=== PATIENT | female | born 1945 | race African-American/Black ===

== ENCOUNTER 2016-06-23 20:12 | Inpatient (IN) | payer OTHER ==
[~2016-06-23] VITALS: Ht 165.1 cm; Wt 99.6 kg
[2016-06-23] MEDS ORDERED: HALOPERIDOL LACTATE 5 MG/ML AMP ONE (20:16)
[2016-06-23] MEDS ORDERED: LORazepam 2 MG/ML VIAL ONE (20:22)
[2016-06-23] MEDS ORDERED: HALOPERIDOL LACTATE 5 MG/ML AMP IM ONE ×2 (20:30)
[2016-06-23] MEDS ORDERED: LORazepam 2 MG/ML VIAL IV PUSH ONE (20:30)
[2016-06-23 20:33] VITALS: BP 158/74; PULSE 98; RESP 16; TEMP 98.3; O2SAT 100
[2016-06-23 20:49] LABS: AUTOMATED NEUTROPHIL # 8.9 TH/MM3 (1.8-7.7); BASOPHIL % 0.3 % (0.0-2.0); HEMATOCRIT 30.1 % (35.0-46.0); HEMO FLAGS AUTO DIFF; LYMPH % 10.8 % (9.0-44.0); LYMPHOCYTE # 1.2 TH/MM3 (1.0-4.8); MEAN CELL VOLUME 82.2 FL (80.0-100.0); MEAN CORPUSCULAR HEMOGLOBIN 26.4 PG (27.0-34.0); MEAN CORPUSCULAR HGB CONC 32.1 % (32.0-36.0); MONO % 7.1 % (0.0-8.0); NEUT % 81.8 % (16.0-70.0); PLATELET COUNT 192 TH/MM3 (150-450); RED BLOOD COUNT 3.67 MIL/MM3 (4.00-5.30); RED CELL DISTRIBUTION WIDTH 23.1 % (11.6-17.2); WHITE BLOOD COUNT 10.9 TH/MM3 (4.0-11.0)
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
[2016-06-23 21:27] LABS: KERATOCYTES OCC (NORMAL); PLATELET ESTIMATE SMEAR NORMAL (NORMAL); SCAN/DIFF AUTO DIFF CONFIRMED
[2016-06-23 21:28] LABS: PLATELET MORPHOLOGY ENLARGED (NORMAL)
[2016-06-23 21:46] LABS: ALKALINE PHOSPHATASE 82 U/L (45-117); ALT (GPT) 30 U/L (10-53); ANION GAP 14 MEQ/L (5-15); AST (GOT) 54 U/L (15-37); BLOOD UREA NITROGEN 20 MG/DL (7-18); CHLORIDE 110 MEQ/L (98-107); GLOMERULAR FILTRATION RATE 25 ML/MIN (>89); POTASSIUM 4.1 MEQ/L (3.5-5.1); SODIUM (NA) 145 MEQ/L (136-145); TOTAL BILIRUBIN ADULT 1.1 MG/DL (0.2-1.0)
[2016-06-23 23:03] LABS: BLOOD, URINE SMALL (NEG); GLUCOSE,URINE NEG (NEG); HYALINE CAST, URINE 4 /lpf (RARE); KETONE, URINE 10 mg/dL (NEG); MUCUS URINE FEW /lpf (OCC); NITRITE,URINE NEG (NEG); PH, URINE 5.5 (5.0-8.5); SQUAMOUS EPITHELIAL CELL URINE <1 /hpf (0-5); URINE COLOR YELLOW (YELLW/STRAW)
[2016-06-23 23:05] LABS: COMMENT (UR) CULT NOT INDICATED; CULTURE IF INDICATED CULT NOT INDICATED
[2016-06-23 23:06] LABS: AMPHETAMINE, URINE NEG (NEG); BARBITURATES, URINE NEG (NEG); COCAINE, URINE NEG (NEG)
[2016-06-24 07:15] VITALS: BP 155/78; PULSE 51; RESP 18; TEMP 98.3; O2SAT 98
--- NOTE | 2016-06-24 13:19 | RADRPT ---
EXAM DATE/TIME: 06/24/2016 12:58 [facility] COMPARISON: CT BRAIN W/O CONTRAST, August 27, 2015, 15:10. INDICATIONS : Altered mental status; confusion. RADIATION DOSE: 36.43 CTDIvol (mGy) MEDICAL HISTORY : Hypertension. SURGICAL HISTORY : None. ENCOUNTER: Initial ACUITY: 1 day PAIN SCALE: 0/10 LOCATION: cranial TECHNIQUE: Multiple contiguous axial images were obtained of the head. Using automated exposure control and adj ustment of the mA and/or kV according to patient size, radiation dose was kept as low as reasonably a chievable to obtain optimal diagnostic quality images. FINDINGS: CEREBRUM: There is mild cerebral atrophy. Ventricles are normal in size. Bilateral basal ganglia calcification is present. There is a stable area of low density in the right basal ganglia likely representing an o ld lacune. No evidence of midline shift, mass lesion, hemorrhage or acute infarction. No extra-axia l fluid collections are seen. POSTERIOR FOSSA: The cerebellum and brainstem demonstrate no acute finding. The 4th ventricle is midline. The cerebe llopontine angle is unremarkable. EXTRACRANIAL: Visualized sinuses are clear. SKULL: The calvaria is intact. No evidence of skull fracture. CONCLUSION: 1. Stable noncontrast head CT. No acute intracranial abnormality is identified. 2. Stable low-density in the right basal ganglia likely representing an old lacune. Van Waldron MD on June 24, 2016 at 13:14 Board Certified Radiologist. This report was verified electronically.
[2016-06-24 13:30] VITALS: BP 190/94; PULSE 50; RESP 18; O2SAT 100
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
[2016-06-24 17:06] VITALS: BP 181/96; PULSE 74; RESP 18; TEMP 96.6; O2SAT 99
[2016-06-24] MEDS ORDERED: ALUMINUM/MAGNESIUM/SIMETH 30 ML CUP PO PRN (18:00)
[2016-06-24] MEDS ORDERED: TEMAZEPAM 15 MG CAP PO PRN (18:00)
[2016-06-24] MEDS ORDERED: LORazepam 1 MG TAB PO PRN (18:00)
[2016-06-24] MEDS ORDERED: LORazepam 2 MG/ML VIAL IM PRN (18:00)
[2016-06-24] MEDS ORDERED: ACETAMINOPHEN 325 MG TAB PO PRN (18:00)
[2016-06-24] MEDS ORDERED: MAGNESIUM HYDROXIDE SUSP 30 ML CUP PO PRN (18:00)
[2016-06-24 18:10] VITALS: BP 154/77; PULSE 72; RESP 18; TEMP 96.9; O2SAT 97
[2016-06-25 05:16] VITALS: BP 176/74; PULSE 76; RESP 14; TEMP 98.4; O2SAT 100
[2016-06-25 07:41] LABS: AUTOMATED NEUTROPHIL # 3.4 TH/MM3 (1.8-7.7); BASOPHIL % 0.5 % (0.0-2.0); EOSINOPHIL # 0.1 TH/MM3 (0-0.4); EOSINOPHIL % 1.5 % (0.0-4.0); LYMPH % 22.5 % (9.0-44.0); LYMPHOCYTE # 1.1 TH/MM3 (1.0-4.8); MEAN CELL VOLUME 81.6 FL (80.0-100.0); MEAN CORPUSCULAR HEMOGLOBIN 26.2 PG (27.0-34.0); MEAN CORPUSCULAR HGB CONC 32.1 % (32.0-36.0); MONO % 9.8 % (0.0-8.0); NEUT % 65.7 % (16.0-70.0); PLATELET COUNT 172 TH/MM3 (150-450); RED BLOOD COUNT 3.79 MIL/MM3 (4.00-5.30); RED CELL DISTRIBUTION WIDTH 23.4 % (11.6-17.2); WHITE BLOOD COUNT 5.1 TH/MM3 (4.0-11.0)
[2016-06-25 07:43] LABS: HEMO FLAGS AUTO DIFF
[2016-06-25 08:11] LABS: ALKALINE PHOSPHATASE 66 U/L (45-117); ALT (GPT) 44 U/L (10-53); ANION GAP 8 MEQ/L (5-15); AST (GOT) 114 U/L (15-37); BICARBONATE 27.3 MEQ/L (21.0-32.0); BLOOD UREA NITROGEN 25 MG/DL (7-18); CHLORIDE 111 MEQ/L (98-107); FREE T4 1.25 NG/DL (0.76-1.46); GLOMERULAR FILTRATION RATE 48 ML/MIN (>89); HDL CHOLESTEROL 91.3 MG/DL (40.0-60.0); LDL CHOLESTEROL 13 MG/DL (0-99); POTASSIUM 3.9 MEQ/L (3.5-5.1); SODIUM (NA) 146 MEQ/L (136-145); TOTAL BILIRUBIN ADULT 0.8 MG/DL (0.2-1.0); URIC ACID 8.5 MG/DL (2.6-6.0)
[2016-06-25 08:39] LABS: SCAN/DIFF AUTO DIFF CONFIRMED
[2016-06-25 08:40] LABS: KERATOCYTES OCC (NORMAL); OVALOCYTES 1+ (NORMAL); PLATELET ESTIMATE SMEAR NORMAL (NORMAL); PLATELET MORPHOLOGY ENLARGED (NORMAL)
[2016-06-25 13:05] LABS: ANA SCREEN POS (NEG)
[2016-06-25 13:15] LABS: HEMOGLOBIN A1a 1.1 %; HEMOGLOBIN A1b 0.7 %; HEMOGLOBIN Ao 86.9 %; HEMOGLOBIN F 0.6 %; HEMOGLOBIN LA1C 1.9 %; HEMOGLOBIN P3 3.3 %
--- NOTE | 2016-06-25 13:15 | PD.CONS ---
HPI Service [facility] Hospitalists Consult Requested By Dr. Juliette Sharma Reason for Consult Medical Management Primary Care Physician Dr. Vlad Moreland Diagnoses: History of Present Illness Mrs. Humphreys is a 71 y/o female with HTN and hx of recurrent colon cancer. She was admitted to [facility] under Laughlin Act for acting erratically, screaming, wandering in and out of traffic. Pt was admitted to psychiatry unit for further management. Pts blood pressure was noted to be elevated since admission. She takes Lisinopril 20mg po daily as an outpt and its not clear if she is compliant with her medications or not. We have resumed her Lisinopril 20mg daily as well as Clonidine PRN. During a previous admission pt was on Lisinopril 20mg po BID and Procardia XL 60mg po daily for BP control. Pts HR is stable. Otherwise no specific complaints. Review of Systems ROS Limitations: Altered Mental Status Past Family Social History Past Medical History HTN Hx of recurrent colon cancer s/p right hemicolectomy with primary anastomosis on 08/02/[address] Marks. Pathology showed +lymph nodes but pt never followed up with Oncology for chemotherapy. Pt had a reoccurrence in 03/2016 and underwent laparoscopic assisted partial colectomy with ileocecal anastomosis in 03/2016 Septic arthritis in finger joint on right hand in 2014 DVT in LUE in 2014 Past Surgical History Right hemicolectomy in 07/2014 Laparoscopic assisted partial colectomy with ileocecal anastomosis in 03/2016 Exploration of right hand middle finger PIP joint on 08/08/14 Cataract surgery Reported Medications Lisinopril 20mg PO DAILY Allergies: Coded Allergies: No Known Allergies (Unverified , 08/21/15) Family History Noncontributory Social History No reported alcohol, tobacco or illicit drug use Physical Exam Vital Signs Vital Signs Date Time Temp Pulse Resp B/P Pulse Ox O2 Delivery O2 Flow Rate FiO2 06/25/16 05:16 98.4 76 14 176/74 100 06/24/16 18:10 96.9 72 18 154/77 97 06/24/16 17:06 96.6 74 18 181/96 99 06/24/16 13:30 50 18 190/94 100 Room Air Physical Exam GENERAL: This is a well-nourished, well-developed patient, in no apparent distress. HEENT: Atraumatic. Normocephalic. No temporal or scalp tenderness. No scleral icterus. Airway patent. NECK: Trachea midline, supple, nontender. CARDIO: Regular RESP: CTA bilaterally. No wheezes, rales, or rhonchi. ABD: +BS, soft, non-tender, nondistended. EXT: Extremities without clubbing, cyanosis, or edema. NEURO: Awake and alert. Motor and sensory grossly within normal limits. Normal speech. Laboratory Laboratory Tests Test 06/25/16 06:45 White Blood Count 5.1 Red Blood Count 3.79 Hemoglobin 9.9 Hematocrit 31.0 Mean Corpuscular Volume 81.6 Mean Corpuscular Hemoglobin 26.2 Mean Corpuscular Hemoglobin 32.1 Concent Red Cell Distribution Width 23.4 Platelet Count 172 Mean Platelet Volume 10.9 Neutrophils (%) (Auto) 65.7 Lymphocytes (%) (Auto) 22.5 Monocytes (%) (Auto) 9.8 Eosinophils (%) (Auto) 1.5 Basophils (%) (Auto) 0.5 Neutrophils # (Auto) 3.4 Lymphocytes # (Auto) 1.1 Monocytes # (Auto) 0.5 Eosinophils # (Auto) 0.1 Basophils # (Auto) 0.0 CBC Comment AUTO DIFF Differential Comment AUTO DIFF CONFIRMED Platelet Estimate NORMAL Platelet Morphology Comment ENLARGED Ovalocytes 1+ Keratocytes OCC Erythrocyte Sedimentation Rate 31 Sodium Level 146 Potassium Level 3.9 Chloride Level 111 Carbon Dioxide Level 27.3 Anion Gap 8 Blood Urea Nitrogen 25 Creatinine 1.32 Estimat Glomerular Filtration 48 Rate Random Glucose 102 Uric Acid 8.5 Calcium Level 9.0 Phosphorus Level 3.1 Total Bilirubin 0.8 Aspartate Amino Transf 114 (AST/SGOT) Alanine Aminotransferase 44 (ALT/SGPT) Alkaline Phosphatase 66 Total Protein 7.0 Albumin 3.4 Triglycerides Level 49 Cholesterol Level 114 LDL Cholesterol 13 HDL Cholesterol 91.3 Cholesterol/HDL Ratio 1.24 Folate 13.1 Free Thyroxine 1.25 Thyroid Stimulating Hormone 2.650 3rd Gen Anti-Nuclear Antibody Screen POS Result Diagram: 06/25/1645 06/25/1645 Imaging Last Impressions Head CT 06/24/16 0000 Signed Impressions: Service Date/Time: May 12:58 - CONCLUSION: 1. Stable noncontrast head CT. No acute intracranial abnormality is identified. 2. Stable low-density in the right basal ganglia likely representing an old lacune. Van Waldron MD Assessment and Plan Problem List: (1) Psychosis Status: Acute Plan: - Pt admitted with acute psychosis under Laughlin Act - Psychiatry managing - Haldol BID - Ativan PRN (2) Dementia Status: Chronic Plan: - Psychiatry following. (3) Anxiety Status: Chronic Plan: - See above. (4) HTN (hypertension) Status: Chronic Plan: - Pt with hx of HTN and likely noncompliance. - During a previous admission pt was on Lisinopril 20mg po BID and Procardia XL 60mg po daily for BP control. - We will resume Lisinopril 20mg po BID and Clonidine PRN - This will likely need to be titrated up - Monitor (5) Anemia Status: Chronic Plan: - Labs are stable. - Monitor (6) Colon cancer Status: Acute Plan: - Hx of recurrent colon cancer s/p right hemicolectomy with primary anastomosis on 08/02/[address] Marks. Pathology showed +lymph nodes but pt never followed up with Oncology for chemotherapy. Pt had a reoccurrence in 03/2016 and underwent laparoscopic assisted partial colectomy with ileocecal anastomosis in 03/2016 Kami Asher Jun 25, 2016 13:15
[2016-06-25] MEDS ORDERED: LISINOPRIL 20 MG TAB PO SCH (13:45)
[2016-06-25] MEDS ORDERED: cloNIDine HCL 0.1 MG TAB PO PRN (13:45)
[2016-06-25] MEDS: HALOPERIDOL 0.5 MG TAB PO SCH ×2 (15:28→20:36)
--- NOTE | 2016-06-25 16:48 | EKG ---
Date Performed: 06/24/2016 Time Performed: 13:38:42 PTAGE: 71 years EKG: SINUS BRADYCARDIA WITH OCCASIONAL SUPRAVENTRICULAR PREMATURE COMPLEXES VOLTAGE CRITERIA FOR LVH PROLONGED QT INTERVAL ABNORMAL ECG PREVIOUS TRACING : 08/27/2015 15.46 Compared to prior tracing no significant change DOCTOR: Shravan James Interpretating Date/Time 06/25/2016 16:46:24
[2016-06-25 19:04] VITALS: BP 143/70; PULSE 66; RESP 15; TEMP 97.8; O2SAT 100
[2016-06-26 06:02] VITALS: BP 178/77; PULSE 62; RESP 17; TEMP 97.4
[2016-06-26] MEDS: HALOPERIDOL 0.5 MG TAB PO SCH ×2 (08:58→20:54)
[2016-06-26] MEDS: LISINOPRIL 20 MG TAB PO SCH ×2 (09:01→20:54)
[2016-06-26 18:52] VITALS: BP 142/67; PULSE 57; RESP 18; TEMP 97.2; O2SAT 100
[2016-06-27 06:11] VITALS: BP 155/74; PULSE 60; RESP 46; TEMP 97.8; O2SAT 98
[2016-06-27] MEDS: HALOPERIDOL 0.5 MG TAB PO SCH ×2 (08:36→21:00)
[2016-06-27] MEDS: LISINOPRIL 20 MG TAB PO SCH ×2 (08:36→21:00)
[2016-06-27] MEDS ORDERED: LISI-515 PO (15:56)
[2016-06-27] MEDS ORDERED: HALO0.5T PO (15:56)
--- NOTE | 2016-06-27 16:44 | MD ---
cc: JOHNY MAS M.D. ADMISSION DATE: 06/24/2016 DISCHARGE DATE: [facility] Visit Search.Discharge Date DATE OF DISCHARGE 06/28/2016 ADMISSION DIAGNOSES Topping I: Psychosis NOS. Dementia, mild. Topping II: No diagnosis. Topping III: Hypertension, unspecified colon surgery. Topping IV: Severity of psychosocial stressors moderate i.e. problems with neighbors, somewhat limited support system. Topping V: Current GAF score 40. DISCHARGE DIAGNOSES Topping I: Psychosis NOS. Dementia, mild. Topping II: No diagnosis. Topping III: Hypertension, unspecified colon surgery. Topping IV: Severity of psychosocial stressors moderate i.e. problems with neighbors, somewhat limited support system. Topping V: Current GAF score 60. This 71-year-old white female was brought to the emergency room of this hospital under the [place] initiated by the police because of it erratic behavior, screaming, wandering in and out of traffic. When officers approached her she started screaming claiming that the officers were trying to stab her and drug her. Please refer to my initial evaluation for details. LABORATORY FINDINGS CBC with differential shows evidence of anemia, i.e., RBC 3.7, hemoglobin 9.9. ESR 31. Urine drug screen negative, blood alcohol level less than 3. JANNETTE positive, but titer pending. Routine urinalysis unremarkable. IMAGING CT scan of the head old lacunar infarct in right basal ganglia otherwise unremarkable. EKG shows sinus bradycardia with occasional supraventricular premature complexes, voltage criteria for left ventricular hypertrophy prolonged QT interval. HOSPITAL COURSE The patient exhibited mild cognitive deficits and as such basic dementia workup was ordered which was essentially unremarkable. It was difficult to determine whether her concerns about the apartment building / neighbors was too a part of her delusions. The apartment complex where she lives was recently a scene of murder and drug activity. This has been in the newspaper. She stated that the police officers did not believe her and as such she reported this to the jailer chief, Mr. Joe Gustafson, who has assured her that he will be further looking into this. To reduce her anxiety / suspected paranoia she was started on small dose of Haldol which she tolerated very well. Throughout this hospital stay she did not exhibit any aggressive or self-destructive behavior nor did she engage in any aggressive or self-destructive behavior. She was very compliant and participated in the program activities very well. Discharge plans were discussed at length with her. Her plans are to return to her apartment building and look for a new apartment complex. In the meantime she is also considering staying with her friend temporarily. She seems to have enough financial resources to stay in hotels temporarily. She was explained discharge plans including followup with psychiatrist at [facility] and she was very receptive to it. In the session today she maintained the same discharge plans. However, the patient as such she was to be discharged today. However later I was informed by the social work nurse Ni Briceno covering for the regular social work nurse and LAURA Mcdaniel that the patient did not have the kellogg to her apartment as it was in a wallet which could not be traced. As such I met with the patient and the nursing staff and the social work nurse to discuss the discharge plans again. She maintained the same i.e. plans to return to her apartment for now. However, she preferred postpone of the discharge until tomorrow so that she could contact her laundry manager. As such she will be discharged tomorrow if okayed by Dr. Mcarthur who will be covering for me in my absence. During this hospital stay she was followed medically by the medical team. She was restarted on lisinopril to control hypertension. 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 She is recommended to follow up medically with her primary care physician. Followup appointments were set for her therapist for tomorrow and her psychiatrist at [facility] Dr. Egan for 07/09/2016. MEDICATIONS Her discharge medications are: 1. Haldol 0.5 mg p.o. b.i.d. #30. 2. Lisinopril 20 mg p.o. b.i.d. #30. She is considered medically cleared by Dr. King. Johny Mas MD HK/KK /4:00 PM /4:20 PM
[2016-06-27 19:10] VITALS: BP 174/81; PULSE 66; RESP 18; TEMP 97.3; O2SAT 96
[2016-06-28 05:30] VITALS: BP 163/74; PULSE 58; RESP 14; TEMP 98.2; O2SAT 97
[2016-06-28] MEDS: LISINOPRIL 20 MG TAB PO SCH (08:42)
[2016-06-28] MEDS: HALOPERIDOL 0.5 MG TAB PO SCH (08:42)
== END 2016-06-28 15:10 | disposition home or self-care (01) | DRG 885 ==
LOC: NEPE 20:12 → NEDA 06-24 12:23 → H250 06-24 16:46 → H260 06-24 20:55
PROVIDERS: ADMIT Psychiatry & Neurology Psychiatry; ATTEND Psychiatry & Neurology Psychiatry
DX: F29 Unspecified psychosis not due to a substance or known physiological condition (principal); F03.90 Unspecified dementia, unspecified severity, without behavioral disturbance, psychotic disturbance, mood disturbance, and anxiety; D64.9 Anemia, unspecified; I10 Essential (primary) hypertension; Z85.038 Personal history of other malignant neoplasm of large intestine; F41.9 Anxiety disorder, unspecified
CPT/HCPCS: 70450; 80053; 80061; 80307; 80320; 81001; 82746; 83036; 84100; 84439; 84443; 84550; 85025; 85652; 86038; 86039; 93005; 96372; 96374; J1630; J2060